=== PATIENT | male | born 1970 | race Caucasian/White ===

== ENCOUNTER 2021-10-29 11:00 | Observation (INO) | payer SELFPAY ==
[2021-10-29 11:37] LABS: CHLORIDE,CL 99 mEq/L (98-106); SODIUM,NA 137 mEq/L (136-145)
[2021-10-29] MEDS ORDERED: Acetaminophen 325 MG Tab PO PRN (12:56)
[2021-10-29] MEDS ORDERED: Sodium Chloride 0.9% 1,000 ML IV ONE (12:56)
[2021-10-29] MEDS ORDERED: Ondansetron 4 MG Tab.DIS PO PRN (12:56)
[2021-10-29] MEDS ORDERED: Ibuprofen 200 MG Tab PO PRN (12:56)
[2021-10-29] MEDS: Sodium Chloride 0.9% 1,000 ML IV SCH ×2 (13:24→21:04)
[2021-10-29] MEDS: Loperamide 2 MG Cap PO PRN ×2 (15:11→20:09)
[2021-10-29] MEDS: Lactobacillus Rhamnosus GG (Probiotic) Cap PO SCH (15:11)
[2021-10-29] MEDS: Ciprofloxacin 500 MG Tab PO SCH (20:09)
[2021-10-30] MEDS: Sodium Chloride 0.9% 1,000 ML IV SCH (03:46)
[2021-10-30] MEDS: Loperamide 2 MG Cap PO PRN (07:49)
[2021-10-30] MEDS: Ciprofloxacin 500 MG Tab PO SCH (07:49)
[2021-10-30] MEDS: Lactobacillus Rhamnosus GG (Probiotic) Cap PO SCH (07:49)
[2021-10-30 08:54] LABS: CHLORIDE,CL 107 mEq/L (98-106); SODIUM,NA 142 mEq/L (136-145)
[2021-10-30] MEDS ORDERED: Potassium Chloride 10 MEQ Tab.ER PO STA (09:55)
== END 2021-10-30 10:50 | disposition home or self-care (01) ==
LOC: CC.FCMC 11:00 → CC.MS 11:52 → UNDOADMOB 11:52 → CC.MS 12:56
PROVIDERS: ADMIT Physician Assistant Medical; ATTEND Nurse Practitioner Family
DX: A02.0 Salmonella enteritis (principal); Z79.899 Other long term (current) drug therapy; Z20.822 Contact with and (suspected) exposure to COVID-19
CPT/HCPCS: 36415; 80053; 81001; 83605; 85025; 86638; 96360; 96361; 96376; A9270-GY; G0378; J7030; U0002